=== PATIENT | female | born 1980 | race Caucasian/White ===

== ENCOUNTER 2017-03-19 21:51 | Emergency (ER) | payer SELFPAY ==
[2017-03-19 22:02] VITALS: BP 153/97
[2017-03-19] MEDS ORDERED: Ketorolac 60 MG/2 ML SDV IM ONE (22:21)
--- NOTE | 2017-03-19 22:28 | EDM.PDOC ---
ED HPI GENERAL MEDICAL PROBLEM - General Chief Complaint: General Stated Complaint: Back Pain Time Seen by Provider: 03/19/17 22:10 Source of Information: Reports: Patient History Limitations: Reports: No Limitations - History of Present Illness INITIAL COMMENTS - FREE TEXT/NARRATIVE: The patient presents with complaint of low back pain and pain radiating down the left lateral leg and then down to the lateral leg and medial leg and down to the great and second toes and not a clear dermatomal pattern. She reports she had a fall on from standing and she has had pain of the low back in the midline and the paraspinous muscles of the lumbar spine on the left. She states the pain is 85% in her back and 15% and in her left leg. She describes the pain in her back as aching and cramping and rates it at up to 8/10. She denies saddle anesthesia and bowel or bladder incontinence or retention. She admits to chronic back pain and states she has been diagnosed with degenerative disk disease. She has seen a pain specialist in the past and was on Ultram. Currently she is on Neurontin 1,200 mg PO TID and Flexeril 10 mg PO TID PRN and she took both last at 6:00 pm this evening but reports the pain is too intense. She reports the pain in the low back and left leg is chronic but the pain in the paraspinous muscles of the lumbar spine on the left is new. She denies other injuries or complaints including a blow to the head or LOC. Lower Back Pain Score (Numeric/FACES): 10 - Related Data Allergies Allergy/AdvReac Type Severity Reaction Status Date / Time No Known Allergies Allergy Verified 03/19/17 21:51 Home Meds: Home Meds Cyclobenzaprine [Flexeril] 10 mg PO TID PRN 03/19/17 [History] Gabapentin [Neurontin] 1,200 mg PO TID 03/19/17 [History] Past Medical History Musculoskeletal History: Reports: Other (See Below) Other Musculoskeletal History: Degenerative Disk Disease of Low Back ED ROS GENERAL - Review of Systems Review Of Systems: ROS reveals no pertinent complaints other than HPI. ED EXAM, GENERAL - Physical Exam Exam: See Below Exam Limited By: No Limitations General Appearance: Alert, WD/WN, No Apparent Distress Eye Exam: Bilateral Eye: EOMI, Normal Inspection, PERRL Ears: Normal External Exam, Normal Canal, Hearing Grossly Normal, Normal TMs Ear Exam: Bilateral Ear: Auricle Normal, Canal Normal, TM normal Nose: Normal Inspection, Normal Mucosa, No Blood Throat/Mouth: Normal Inspection, Normal Lips, Normal Teeth, Normal Gums, Normal Oropharynx Head: Atraumatic, Normocephalic Neck: Normal Inspection, Supple, Non-Tender, Full Range of Motion. No: Lymphadenopathy (L), Lymphadenopathy (R), Tender Lateral, Tender Midline Respiratory/Chest: No Respiratory Distress, Lungs Clear, Normal Breath Sounds, No Accessory Muscle Use Cardiovascular: Normal Peripheral Pulses, Regular Rate, Rhythm, No Edema, No Gallop, No Murmur, No Rub Peripheral Pulses: 2+: Radial (L), Radial (R), Posterior Tibial (L), Posterior Tibial (R), Dorsalis Pedis (L), Dorsalis Pedis (R) GI/Abdominal: Normal Bowel Sounds, Soft, Non-Tender, No Organomegaly, No Distention Back Exam: Paraspinal Tenderness (Left paraspinous muscles of lumbar spine exquisitely tender and tense and tight. ), Vertebral Tenderness (Lumbar spine with no focal tender point and no palpable step-offs or defects. ). No: CVA Tenderness (L), CVA Tenderness (R) Extremities: Normal Range of Motion, Non-Tender, No Pedal Edema, Normal Capillary Refill, Other (Subjective numbness of left lower leg nondermatomal distribution as numbness throughout the medial anterior and lateral thigh and medial and lateral lower leg and great and second toes but sensation still intact to LT and PP grossly. Reflexes 3+ bilateral patellar and achilles. No saddle anesthesia of groin or perineum when patient palpates privates. Straight leg raise positive at > 40 degrees of left leg and mild pain in nondermatomal pattern.) Neurological: Alert, Oriented, CN II-XII Intact, Normal Cognition, Normal Gait, Normal Reflexes, No Motor/Sensory Deficits (Other thant that described above for subjective numbness of left L5 dermatome. Strength 5/5 in bilateral legs throughout. ) Psychiatric: Normal Affect, Normal Mood Skin Exam: Warm, Dry, Intact, Normal Color, No Rash Lymphatic: No Adenopathy Course - Vital Signs Last Recorded V/S: Last Vital Signs Temp 36.7 C 03/19/17 21:54 Pulse 86 03/19/17 21:54 Resp 16 03/19/17 21:54 BP 153/97 H 03/19/17 21:54 Pulse Ox 99 03/19/17 21:54 - Orders/Labs/Meds Orders: Active Orders 24 hr Category Date Time Status Lumbar Spine 2 or 3V [CR] Stat Exams 03/19/17 22:22 Taken Meds: Medications Discontinued Medications Generic Name Dose Route Start Last Admin Trade Name Asael PRN Reason Stop Dose Admin Diazepam 10 mg 03/19/17 22:22 Valium IVPUSH 03/19/17 22:23 ONETIME ONE Diazepam 10 mg 03/19/17 22:44 03/19/17 22:50 Valium IM 03/19/17 22:45 10 mg ONETIME ONE Administration Ketorolac Tromethamine 60 mg 03/19/17 22:21 03/19/17 22:25 Toradol IM 03/19/17 22:22 60 mg ONETIME ONE Administration - Radiology Interpretation Free Text/Narrative:: XR of lumbar spine shows no acute fractures or dislocations. Departure - Departure Time of Disposition: 23:30 Disposition: Home, Self-Care 01 Clinical Impression: Spasm of muscle, back Low back strain Qualifiers: Encounter type: initial encounter Qualified Code(s): S39.012A - Strain of muscle, fascia and tendon of lower back, initial encounter - Discharge Information Forms: ED Department Discharge - My Orders Last 24 Hours: My Active Orders 03/19/17 22:22 Lumbar Spine 2 or 3V [CR] Stat - Assessment/Plan Last 24 Hours: My Active Orders 03/19/17 22:22 Lumbar Spine 2 or 3V [CR] Stat Assessment:: Strain and spasm of lumbar paraspinous muscles on the left. Chronic back pain and pain in left leg in nondermatomal distribution. Plan: 1. Toradol 60 mg IM in ER. 2. Valium 10 mg IM in ER. 3. Instructed to take OTC ibuprofen 400-600 mg every 6 hours as needed for pain or discomfort beginning 03/20/17 at 8 AM. 4. Resume prescription for Flexeril as ordered on 03/20/17 at 8 AM. 5. Follow up with PCP in 1-2 weeks if symptoms persist or sooner if symptoms worsen. 6. Return to ER with saddle anesthesia (numbness or privates), bowel or bladder incontinence or retention, new weakness or numbness or tingling, or severe uncontrolled pain.
== END 2017-03-19 23:40 | disposition home or self-care (01) ==
LOC: LL.ED 21:51
DX: S39.012A Strain of muscle, fascia and tendon of lower back, initial encounter (principal); W19.XXXA Unspecified fall, initial encounter
CPT/HCPCS: 72100; 96372; 99283; J1885; J3360

== ENCOUNTER 2017-05-25 11:15 | Emergency (ER) | payer SELFPAY ==
--- NOTE | 2017-05-25 11:18 | EDM.PDOC ---
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 anxiety depressive disorder SNOMED Code(s): 732317424 Code(s): F41.8 - OTHER SPECIFIED ANXIETY DISORDERS Status: Chronic Priority: Medium Current Visit: Yes Annotation/Comment:: Stable by patient history, although moderate control during today's evaluation. Continue to observe closely by her regular providers (6) Peptic reflux disease SNOMED Code(s): 22627061 Code(s): K21.9 - GASTRO-ESOPHAGEAL REFLUX DISEASE WITHOUT ESOPHAGITIS Status: Chronic Priority: Medium Current Visit: Yes Annotation/Comment:: Stable by patient history with OTC meds (7) Peripheral neuropathy SNOMED Code(s): 537380886 Code(s): G62.9 - POLYNEUROPATHY, UNSPECIFIED Status: Chronic Priority: Medium Current Visit: Yes Annotation/Comment:: Stable by patient history with high-dose Neurontin therapy Qualifiers: Peripheral neuropathy type: polyneuropathy, other Qualified Code(s): G62.89 - Other specified polyneuropathies (8) Right hemiparesis SNOMED Code(s): 359595459 Code(s): G81.91 - HEMIPLEGIA, UNSPECIFIED AFFECTING RIGHT DOMINANT SIDE Status: Chronic Priority: Medium Current Visit: Yes Annotation/Comment:: Secondary to cervical disease by patient history despite negative MRI as above (9) Tobacco abuse counseling SNOMED Code(s): 148310247, 176889084, 858782794 Code(s): Z71.6 - TOBACCO ABUSE COUNSELING Status: Acute Current Visit: Yes Annotation/Comment:: Tobacco cessation strongly encouraged with information provided at discharge (10) Bacteria in urine SNOMED Code(s): 62291797 Code(s): R82.71 - BACTERIURIA Status: Acute Priority: Medium Current Visit: Yes Onset Date: 05/25/17 Annotation/Comment:: Patient denies any current UTI symptoms. Note positive nitrites and many bacteria with possible contamination. Delay antibiotic therapy for now until results of urine culture and sensitivity are obtained. Patient is aware of possible beginning UTI and will notify us if symptoms occur prior to obtaining culture results as above - Problem List Review Problem List Initiated/Reviewed/Updated: Yes - My Orders Last 24 Hours: My Active Orders 05/25/17 11:19 Oxygen Therapy, ED [RC] CONTINUOUS Peripheral IV Care [RC] . DIRECTED Pulse Oximetry [RC] PRN Up With Assistance [RC] PFP Vital Signs [RC] PFP Cervical Spine 1V [CR] Stat Cervical Spine wo Cont [CT] Stat Chest 1V Frontal [CR] Stat Head wo Cont [CT] Stat Lumbar Spine 1V [CR] Stat Pelvis 1V or 2V [CR] Stat Sodium Chloride 0.9% [Saline Flush] 10 ml FLUSH ASDIRECTED PRN Obtain Past Medical Record [OM.PC] Urgent Peripheral IV Insertion Adult [OM.PC] Stat Resuscitation Status Stat 05/25/17 11:31 Lumbar Spine wo Cont [CT] Stat 05/25/17 12:58 CULTURE URINE [RM] Urgent 05/25/17 Breakfast Nothing per Oral Now Diet [DIET] - Assessment/Plan Last 24 Hours: My Active Orders 05/25/17 11:19 Oxygen Therapy, ED [RC] CONTINUOUS Peripheral IV Care [RC] . DIRECTED Pulse Oximetry [RC] PRN Up With Assistance [RC] PFP Vital Signs [RC] PFP Cervical Spine 1V [CR] Stat Cervical Spine wo Cont [CT] Stat Chest 1V Frontal [CR] Stat Head wo Cont [CT] Stat Lumbar Spine 1V [CR] Stat Pelvis 1V or 2V [CR] Stat Sodium Chloride 0.9% [Saline Flush] 10 ml FLUSH ASDIRECTED PRN Obtain Past Medical Record [OM.PC] Urgent Peripheral IV Insertion Adult [OM.PC] Stat Resuscitation Status Stat 05/25/17 11:31 Lumbar Spine wo Cont [CT] Stat 05/25/17 12:58 CULTURE URINE [RM] Urgent 05/25/17 Breakfast Nothing per Oral Now Diet [DIET] Assessment:: As above Plan: As above. Extensive precautions were given to the patient, who is in agreement with the treatment plan. See Patient Instructions for further treatment and plan.
[2017-05-25] MEDS ORDERED: Sodium Chloride 0.9% 10 ML Syringe FLUSH PRN (11:19)
[2017-05-25 12:00] LABS: CHLORIDE,CL 104 mmol/L (98-107); SODIUM,NA 139 mmol/L (136-145)
== END 2017-05-25 13:31 | disposition home or self-care (01) ==
LOC: LL.ED 11:15
DX: G81.91 Hemiplegia, unspecified affecting right dominant side (principal); M15.0 Primary generalized (osteo)arthritis; G62.89 Other specified polyneuropathies; E03.9 Hypothyroidism, unspecified; F41.8 Other specified anxiety disorders; F17.210 Nicotine dependence, cigarettes, uncomplicated; K21.9 Gastro-esophageal reflux disease without esophagitis; Z71.6 Tobacco abuse counseling; Z79.899 Other long term (current) drug therapy
CPT/HCPCS: 36000; 36415; 70450; 71010; 72020; 72125; 72131; 72170; 80053; 80305; 81001; 82150; 82272; 82550; 82553; 83605; 83690; 83735; 84484; 84550; 85025; 85610; 85730; 87086; 87088; 87186; 99285; G0390; G0480; 99284

== ENCOUNTER 2019-04-28 18:28 | Emergency (ER) | payer SELFPAY ==
[2019-04-28 18:58] LABS: CHLORIDE,CL 100 mmol/L (98-107); SODIUM,NA 134 mmol/L (136-145)
[2019-04-28] MEDS ORDERED: HYDROmorphone 0.5 MG/0.5 ML Syringe ONE (19:18)
[2019-04-28] MEDS ORDERED: Diphtheria,Pertussis(Acell),Tetanus Vaccine 0.5 ML SDV ONE (19:37)
[2019-04-28] MEDS ORDERED: Morphine 2 MG/ML Syringe ONE (20:45)
--- NOTE | 2019-04-28 20:58 | ER ---
HISTORY OF PRESENT ILLNESS: The patient is a 39-year-old female who was seen in the emergency room after being hit with the head of the horse in the left side of her face and chest. The patient states that the horse reared up on her and arched the back and neck hitting her in the face and chest. She complains of discomfort in her face and chest and some left-sided neck pain. At this time, initial evaluation revealed a patent airway. She is alert, oriented, admits to possible loss of consciousness for a few seconds earlier today. Her breathing is normal. Respirations around 20. Trachea is in the midline. Central circulation appeared normal. She had good color, was warm to touch. Palpable pulses in both femoral and carotids. Head was normocephalic. There was ecchymosis over the left eye, which was now swelling up. No tenderness to palpation of the eyes. At this time, we ordered a CT of the face to evaluate her. There were 2 lacerations over the left ear, which was small, bleeding was control, and abrasion on left cheek which was small and superficial. At this time, she complained of left shoulder pain and neck. Her NEXUS was negative. She had good range of motion. No tenderness to palpation over the back of the neck. No pain to AP pressures. Neck revealed full range of motion. At this time, her shoulders revealed tenderness to palpation over left shoulder with limited range of motion. Her right shoulder was within normal limits. Her chest with symmetrical expansion. Clear to auscultation. She did have some wheezing that cleared up with coughing. She had no pain to AP palpation or laterally. Abdomen was soft and nontender. No pain to palpation. Good bowel sounds. Lower extremities reveal full range of motion. No edema, no cyanosis, no clubbing. ASSESSMENT: At this time is a 39-year-old female who was involved in a horse accident with facial trauma and neck pain. At this time, we went ahead and obtained a CT of the face, which was negative. We also obtained a CT of the neck, which showed full range of motion. No pain to palpation. We went ahead and ordered a CT of the face, which was negative. We also ordered a CT of the neck, which was negative for fractures. Left shoulder x-rays were obtained which revealed no fractures or dislocations at this time. We reviewed the EKG, which is normocephalic. Labs were within normal limits except for leukocytosis. The leukocytosis was secondary probably to trauma. At this time, we will send her home from the trauma code after I receive a call from the radiologist clearing her neck and shoulder. KYLER Trujillo MD /[id number]
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
--- NOTE | 2019-05-02 08:59 | PCM.SN ---
- Free Text/Narrative Note: Date of Service: 04-28-2019 Clinical Impression: Struck by a Horse- Code W555.12XA
== END 2019-04-28 22:21 | disposition home or self-care (01) ==
LOC: LL.ED 18:28
DX: S01.312A Laceration without foreign body of left ear, initial encounter (principal); S05.32XA Ocular laceration without prolapse or loss of intraocular tissue, left eye, initial encounter; M54.2 Cervicalgia; M25.512 Pain in left shoulder; Z23 Encounter for immunization; W55.12XA Struck by horse, initial encounter
CPT/HCPCS: 36415; 70486; 72125; 73030; 80053; 83605; 85025; 90471; 90715; 93005; 96361; 96374; 96375; 99285; J1170; J2270